=== PATIENT | male | born 1995 | race Hispanic/Latino ===

== ENCOUNTER 2018-07-29 14:17 | Emergency (ER) | payer OTHER ==
[2018-07-29] MEDS ORDERED: IBUPROFEN 800 MG TAB ONE (15:14)
[2018-07-29] MEDS ORDERED: ORPHENADRINE CITRATE 30 MG/ML ML ONE (15:14)
== END 2018-07-29 15:45 | disposition home or self-care (01) ==
LOC: EDH 14:17
DX: G89.29 Other chronic pain (principal); M54.89 Other dorsalgia; M62.830 Muscle spasm of back
CPT/HCPCS: 96372; 99283; J2360

== ENCOUNTER 2025-04-25 01:21 | Emergency (ER) | payer SELFPAY ==
[~2025-04-25] VITALS: Ht 180.3 cm; Wt 137.9 kg
--- NOTE | 2025-04-25 02:31 | ERN ---
ED Note History of Present Illness Stated Complaint: C/O "BUMP" TO INSIDE OF MOUTH Chief Complaint: Other Problems Time Seen by MD: :24 Time Seen by Midlevel: 01:24 Dictation: The Patient is a 30-year-old male no significant medical history who presents to the emergency department with complaints of bump to left lower inner lip onset two weeks ago. Patient denies any fevers, denies any trauma. Allergies: Coded Allergies: No Known Allergies (Unverified Allergy, Unknown, 04/25/25) Past Medical History Past Medical History: No Pertinent History Surgical History: None RN Note Reviewed/Agreed w/PFSH: Yes Review of System Dictation Constitutional: Negative for fever,chills, and weight loss Eyes: Negative for injury, pain,redness, and discharge ENT: Negative for injury,pain or swelling Cardiovascular: Negative for chest pain, palpitations, and edema Respiratory: Negative for shortness of breath, cough, and wheezing, Abdomen/GI: Negative for abdominal pain, nausea, vomiting, diarrhea, and constip ation Back: Negative for injury and pain : Negative for injury, bleeding and discharge MS/Extremity: Negative for injury and deformity Skin: Negative for rash, and discoloration positive for bump inside mouth Neuro: Negative for headache, weakness, numbness, tingling, and seizure Psych: Negative for suicide ideation, homicidal ideation, and hallucinations Initial Vital Sign VS Vital Signs Date Time Temp Pulse Resp B/P (MAP) Pulse Ox O2 Delivery O2 Flow Rate FiO2 04/25/25 01:23 96.4 105 18 137/82 97 Room Air Physical Exam Dictation Vital Signs reviewed General Appearance: Alert, oriented x 3, no acute distress, well developed, nourished. Head and Face: non-traumatic. Eyes: PERRL, pink conjunctivas, eyelid no trauma, anterior chamber with arcus senilis. Ears: Pinnas intact and no signs of trauma or erythema ear canals clear and no discharge TM no erythema Nose: No discharge, no bleeding. Oropharynx: Mouth normal, tongue pink.small fluid filled cyst to left inner lip pharynx clear,no erythema, tonsils no exudates, no abscesses noted, mucous membrane moist Neck: Supple, non-tender, no thyromegaly, no masses, no JVD, no bruits Breast:Deferred Chest:No tenderness, no crepitus, no paradoxical movement, no retractions Lungs:Clear, well-ventilated, symmetric, no rales, no wheezing, no rhonchi, no stridor, good breath sounds bilaterally Heart: Regular rate, regular rhythm, no murmur, no gallops Vascular: no peripheral edema, Abdomen: Soft, positive bowel sounds, nondistended, no guarding, nontender, no rebound, no masses no hepatomegaly, no splenomegaly, no Donato's sign, no hernias. Rectal: Deferred Genital: Deferred Neurological: Normal speech, motor function intact, sensory function intact Musculoskeletal: Neck nontender, full range of motion, back nontender, full range of motion, Extremities: nontender, full range of motion Skin: Color pink, dry, no turgor, no rash, no lacerations, no abrasions, no contusions. Lymphatic: Deferred Results (Laboratory/Radiology) Labs Reviewed?: Yes ED Course ED Course Vital Signs Date Time Temp Pulse Resp B/P (MAP) Pulse Ox O2 Delivery O2 Flow Rate FiO2 04/25/25 01:23 96.4 105 18 137/82 97 Room Air Medical Decision Making MDM The Patient is a 30-year-old male no significant medical history who presents to the emergency department with complaints of bump to left lower inner lip onset t wo weeks ago. Patient denies any fevers, denies any trauma. Patient with a mucocele to inner lip. no drainage. patient in no acute distress. Instructed to follow up with PCP. Differential diagnosis: Ulcer, mucocele, abscess Need for hospitalization: Patient does not meet criteria for hospitalization. There are no social concerns with this patient. DX & DISP Disposition: Discharge Departure Impression: Primary Impression: Mucocele of lower lip Condition: Stable Additional Instructions: FOLLOW-UP WITH PRIMARY CARE PROVIDER IN 1 TO 2 DAYS. TAKE MEDICATIONS DIRECTED HERE IN THE EMERGENCY ROOM. OKAY TO CONTINUE HOME MEDICATIONS UNLESS OTHERWISE DISCUSSED DURING YOUR VISIT IN THE EMERGENCY ROOM TODAY. RETURN TO YOUR NEAREST EMERGENCY ROOM IF SYMPTOMS WORSEN OR IF THERE IS NO IMPROVEMENT. CALL 911 IF YOU NEED IMMEDIATE ASSISTANCE. TAKE TYLENOL OR MOTRIN [id number] TER NEEDED AND IF NO CONTRAINDICATIONS ARE PRESENT. INCREASE ORAL HYDRATION. A WOUND CULTURE OR URINE CULTURE WAS ORDERED HERE IN THE EMERGENCY ROOM DEPARTMENT PLEASE FOLLOW-UP WITH PRIMARY CARE PROVIDER AND ADVISE THEM TO GET REPEAT PORTS FROM OUR FACILITY. IF YOU HAD ANY KATHY WRAP/SPLINTS THAT WERE APPLIED HERE, PLEASE DO NOT REMOVE THEM UNTIL YOU SEE YOUR PRIMARY CARE OR SP ECIALTY. Referrals: SELF,REFERRAL (PCP) Time of Disposition: 02:30 I have reviewed the case, and I agree with, Diagnosis and Plan [facility] Apr 25, 2025 02:31
[2025-04-25 02:33] VITALS: BP 135/79; PULSE 99; RESP 18; TEMP 96.9; O2SAT 98
== END 2025-04-25 02:39 | disposition home or self-care (01) ==
LOC: EDH 01:21
DX: K13.79 Other lesions of oral mucosa (principal)
CPT/HCPCS: 99282